=== PATIENT | female | born 1990 | race Two or more races ===

== ENCOUNTER 2024-07-10 14:00 | Inpatient (IN) | payer OTHER ==
[2024-07-10 16:22] LABS: BASO % 0.2 % (0-2.0); EOS % 0.8 % (0-4.5); HEMATOCRIT 27.8 % (32.4-45.2); HEMOGLOBIN 8.5 GM/dL (10.7-15.3); LYMPH % 20.5 % (8-40); MCHC 30.5 g/dl (32.0-36.0); MEAN CELL VOLUME 61.9 fl (80-96); MEAN PLT VOLUME 8.4 fl (7.5-11.1); MONO % 5.3 % (3.8-10.2); NEUT % 73.2 % (42.8-82.8); PLATELET COUNT 354 10^3/uL (134-434); RBC 4.49 M/mm3 (3.60-5.2); RDW 21.2 % (11.6-15.6); WHITE BLOOD COUNT 8.7 K/mm3 (4.0-10.0)
[2024-07-10 16:25] LABS: MCH 18.9 pg (25.7-33.7)
[2024-07-10 16:28] LABS: INR 0.87 (0.83-1.09); PROTHROMBIN TIME (PATIENT) 10.1 SEC (9.7-13.0)
[2024-07-10 16:30] LABS: ACTIVATED PTT 25.8 SECONDS (25.2-36.5)
[2024-07-10 16:36] LABS: POTASSIUM 3.9 mmol/L (3.5-5.1)
[2024-07-10 16:37] LABS: CALCIUM 8.3 mg/dL (8.5-10.1)
[2024-07-10 16:38] LABS: BLOOD UREA NITROGEN 7.1 mg/dL (7-18)
[2024-07-10 16:41] LABS: CREATININE 0.4 mg/dL (0.55-1.3)
[2024-07-10 17:00] VITALS: BMI 30.2
[2024-07-10 17:33] LABS: HIV INTERPRETATION NEGATIVE (NEGATIVE)
[2024-07-10] MEDS: CITRIC ACID/SODIUM CITRATE 30 ML UNIT-DOSE CUP PO ONE (20:30)
[2024-07-10] MEDS ORDERED: FENTANYL CITRATE/PF 50 MCG/ML VIAL ONE (21:41)
[2024-07-10] MEDS ORDERED: morphine SULFATE/PF 1 MG/2 ML (2cc Syringe - QUVA) ONE (21:41)
[2024-07-10] MEDS ORDERED: NITROGLYCERIN 50 MG/10 ML VIAL IVPB ONE (22:35)
[2024-07-10] MEDS ORDERED: ONDANSETRON 4 MG/2 ML VIAL ONE (22:35)
[2024-07-10] MEDS ORDERED: LIDOCAINE HCL/PF 2% SDV 5ML VIAL ONE (22:35)
[2024-07-10] MEDS ORDERED: KETAMINE HCL 200 MG/20 ML VIAL ONE (22:35)
[2024-07-10] MEDS ORDERED: MIDAZOLAM HCL 2 MG/2 ML SINGLE DOSE VIAL ONE (22:38)
[2024-07-10 23:11] LABS: CORD BASE EXCESS -1.8 mmol/L (0-2); CORD HCO3 23.7 mmHg (20-29); CORD PCO2 43.2 mmHg (30-78); CORD pH 7.357 (7.14-7.44)
[2024-07-10] MEDS: OXYTOCIN 20 UNITS in 0.9% NS 20 UNIT/1,000 ML INFUS.BAG IV SCH (23:35)
[2024-07-11] MEDS: IBUPROFEN 600 MG TABLET (FP) PO PRN (03:00)
[2024-07-11] MEDS: DEXTROSE 5%-LACTATED RINGERS 1,000 ML IV SCH (07:43)
[2024-07-11] MEDS: FERROUS SO4 325 MG TABLET (FP) PO SCH (07:45)
[2024-07-11 08:06] LABS: BASO % 0.2 % (0-2.0); EOS % 0.2 % (0-4.5); HEMATOCRIT 22.6 % (32.4-45.2); LYMPH % 10.6 % (8-40); MEAN CELL VOLUME 62.4 fl (80-96); MEAN PLT VOLUME 8.6 fl (7.5-11.1); MONO % 4.1 % (3.8-10.2); NEUT % 84.9 % (42.8-82.8); PLATELET COUNT 309 10^3/uL (134-434); RBC 3.62 M/mm3 (3.60-5.2); RDW 21.3 % (11.6-15.6); WHITE BLOOD COUNT 11.4 K/mm3 (4.0-10.0)
[2024-07-11 08:15] LABS: MCH 18.7 pg (25.7-33.7)
[2024-07-11 08:17] LABS: HEMOGLOBIN 6.8 GM/dL (10.7-15.3)
[2024-07-11] MEDS: oxyCODONE HCL 5 MG TABLET PO PRN (11:18)
[2024-07-11] MEDS: DOCUSATE SODIUM 100 MG CAPSULE (FP) PO PRN (19:39)
[2024-07-11 22:13] VITALS: RESP 18
[2024-07-12] MEDS: ACETAMINOPHEN 325 MG TABLET (FP) PO PRN (06:10)
[2024-07-12 23:41] VITALS: TEMP 98.5
[2024-07-13 08:24] LABS: BASO % 0.4 % (0-2.0); EOS % 1.2 % (0-4.5); LYMPH % 18.2 % (8-40); MEAN CELL VOLUME 63.8 fl (80-96); MEAN PLT VOLUME 7.2 fl (7.5-11.1); NEUT % 75.2 % (42.8-82.8); PLATELET COUNT 358 10^3/uL (134-434); RBC 3.61 M/mm3 (3.60-5.2); RDW 22.7 % (11.6-15.6); WHITE BLOOD COUNT 7.2 K/mm3 (4.0-10.0)
[2024-07-13 08:26] LABS: MCH 19.1 pg (25.7-33.7)
[2024-07-13 08:28] LABS: HEMOGLOBIN 6.9 GM/dL (10.7-15.3)
[2024-07-13 11:31] VITALS: BP 102/66; PULSE 79
== END 2024-07-13 18:30 | disposition home or self-care (01) | DRG 540 ==
LOC: JLDR 14:00 → J3W 07-11 03:00
PROVIDERS: ADMIT Obstetrics & Gynecology Maternal & Fetal Medicine; ATTEND Obstetrics & Gynecology Maternal & Fetal Medicine
PROC: 10D00Z1 Extraction of Products of Conception, Low, Open Approach (ICD-10-PCS; principal; 2024-07-10)
DX: O42.92 Full-term premature rupture of membranes, unspecified as to length of time between rupture and onset of labor (principal); O32.1XX0 Maternal care for breech presentation, not applicable or unspecified; O99.013 Anemia complicating pregnancy, third trimester; Z3A.37 37 weeks gestation of pregnancy; Z37.0 Single live birth
CPT/HCPCS: 36415; 36600; 80048; 82803; 85025; 85610; 85730; 86780; 86850; 86900; 86901; 87389; 88307-TC